=== PATIENT | female | born 1990 | race Caucasian/White ===

== ENCOUNTER 2019-07-05 05:27 | Day surgery (SDC) | payer MEDICARE, MEDICAID ==
[~2019-07-05] VITALS: Ht 170.2 cm; Wt 143.2 kg
[~2019-07-05 05:27] MED LIST: CELEXA40 MG PO; LAMICTAL200 M1 PO; OMEPRAZOLE20 M1 PO
[2019-07-05 05:52] LABS: HEMATOCRIT 41.9 % (36.0-48.0); HEMOGLOBIN 13.4 g/dL (12-16); MCH 27.9 pg (26.0-34.0); MCV 87.3 fL (80.0-100.0); MEAN PLATELET VOLUME 8.5 fL (7.4-10.4); RBC 4.8 10x6/uL (4.00-5.40); RDW 13.7 % (11.5-14.5)
[2019-07-05 06:14] LABS: HCG SERUM NEGATIVE (NEGATIVE)
[2019-07-05 06:23] VITALS: Ht 170.2 cm; Wt 143.2 kg
[2019-07-05 06:27] LABS: HCG URINE NEGATIVE (NEGATIVE)
[2019-07-05] MEDS ORDERED: PERCOCET 10-321 EAC1 PO (08:04)
[2019-07-05] MEDS ORDERED: TORADOL10 MG PO (08:04)
--- NOTE | 2019-07-05 09:17 | NUR ---
0911 1 PERCOCET 10/325MG PO FOR COMPLAINTS OF PAIN. RANKS PAIN 9/10, THROBBING TO RIGHT KNEE. Desiree WALTER R.N.
--- NOTE | 2019-07-05 10:39 | NUR ---
1005 DRESSED. AWAKE & ALERT. GIVEN DISCHARGE INFORMATION INCLUDING: RX'S 2: TORADOL 10MG & PERCOCET 10/325MG, MED REC, RTC APPT., [facility] OUTPATIENT D/C INSTRUCTIONS, & DR. FLORIAN'S KNEE SCOPE POST-OPERATIVE INSTRUCTIONS. PT INFORMED 1 PERCOCET 10/325MG @ 0911 & NEXT AVAILABLE @ 3:11. MAR HIGHLIGHTED WITH NOTES. TO PRIVATE CAR PER WHEELCHAIR BY STAFF. HOME WITH MOTHER. Desiree WALTER R.N.
--- NOTE | 2019-07-05 12:09 | OP ---
PATIENT NAME: MAGDALENA CRUPM MEDICAL RECORD: [id number] LOCATION:[facility] ADMISSION DATE: SURGEON: TAWANDA FLORIAN DO DATE OF OPERATION: 07/05/2019 PROCEDURE PERFORMED: Right knee arthroscopy with partial lateral meniscectomy and patellar abrasion chondroplasty. 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 INDICATIONS: Ms. Crump is a 28-year-old female who had an MRI done by her primary care due to a catching, popping, and locking of her right knee, showed chondromalacia as well as lateral meniscal tear. Due to her young age, I thought maybe we could do a repair, but it was torn and the very inner portion of the white-white zone of the meniscus, which was not amenable to repair and that was a horizontal split as well, which was also not a good healing portion of the meniscus. I informed her of that, I informed her that we get in there and look out and see if we could repair it as well as the risk of retear, blood clots, infection, bleeding, damage to nerves and vessels and even and she signed the consent. SURGEON: Tawanda Florian DO DESCRIPTION OF PROCEDURE: The patient was taken to the operative suite, laid in supine position, general anesthetic and LMA was placed. She was given 3 grams of Ancef preoperatively. The right leg was then prepped and draped in sterile fashion. Timeout was performed, everyone was in agreeance with the correct side, site, patient and procedure. I then began by starting the lateral portal with an 11-blade scalpel. The trocar was entered in the knee. Suprapatellar pouch was then inspected and there were no loose bodies seen in that; however, the patellar chondromalacia was noted grade IV on mostly the lateral facet. With respect to the lateral and medial gutters, no loose body seen in that. The knee was then flexed down. The medial compartment was then opened. An 18-gauge spinal needle and an 11-blade scalpel was then used to establish a medial portal. Trocar was then brought in, opened it up. We then probed the medial meniscus. No tears were seen in it and the medial cartilage looked to be in good shape. I then pulled on the ACL and it was in good repair. I then [id number]'ed the knee and the lateral compartment was entered and noted the fraying of the lateral meniscus right away. There was a tear in the medial portion of the lateral meniscus that was frayed mostly on the inferior aspect and it was not amenable to repair. I brought in the biter and shaver, and trimmed it back to a stable point. Once that was trimmed out to a stable point, the patella was addressed and I did a chondroplasty of that with the shaver. I then turned the suction on and the water off and excess fluid was removed from the knee. I then closed the lateral portal with an inverted interrupted stitch with 4-0 Monocryl and the medial portal with a [id number] stitch. She was then dressed with Steri-Strips, Adaptic, 4 x 4's, ABD, Webril, Don wrap and was awakened and taken to recovery in stable condition. BLOOD LOSS: Minimal. OPERATIVE REPORT [id number] MAGDALENA CRUMP COMPLICATIONS: None. TRANSINT:[id number] Voice Confirmation ID: [id number] DOCUMENT ID: [id number] TAWANDA FLORIAN DO at 1209 CC: [id number] DICTATION DATE: 07/05/19813 INTERIOR SPECIALIST: 07/05/19 1105 [facility] 07/05/19 [facility] [address] [place] [address]
== END 2019-07-05 10:05 | disposition home or self-care (01) ==
LOC: D.PAN 05:27 → D.OPS 09:30 → D.PAN 10:05
PROVIDERS: Anesthesiology; ATTEND Orthopaedic Surgery
DX: S83.281A Other tear of lateral meniscus, current injury, right knee, initial encounter (principal); X58.XXXA Exposure to other specified factors, initial encounter; M22.41 Chondromalacia patellae, right knee